=== PATIENT | female | born 1965 | race Caucasian/White ===

== ENCOUNTER → 2024-12-07 16:14 | Outpatient (REF) | payer BC, SELFPAY | LOC: WDC 16:14 | PROVIDERS: ATTENDING PHYSICIAN Obstetrics & Gynecology Gynecology; FAMILY PHYSICIAN Family Medicine | DX: Z12.31 Encounter for screening mammogram for malignant neoplasm of breast (principal) | CPT/HCPCS: 77063; 77067 ==

== ENCOUNTER → 2024-12-29 07:19 | Outpatient (REF) | payer BC, SELFPAY | LOC: HWRAD 07:19 | PROVIDERS: ATTENDING PHYSICIAN Internal Medicine Hematology & Oncology; FAMILY PHYSICIAN Family Medicine | DX: D47.3 Essential (hemorrhagic) thrombocythemia (principal); D64.9 Anemia, unspecified; D50.9 Iron deficiency anemia, unspecified | CPT/HCPCS: 76700 ==